=== PATIENT | female | born 1970 | race Caucasian/White ===

== ENCOUNTER → 2019-03-22 | Outpatient (CLI) | payer MEDICARE, MEDICAID | LOC: LAB.O 12:01 | PROVIDERS: ATTEND Internal Medicine Hematology & Oncology | DX: C90.02 Multiple myeloma in relapse (principal) ==

== ENCOUNTER → 2019-04-10 | Outpatient (CLI) | payer MEDICARE, MEDICAID ==
--- NOTE | 2019-04-10 16:03 | RAD ---
EXAM DESCRIPTION: Metastatic Series CLINICAL HISTORY: 48 years Female, MULTIPLE MYELOMA COMPARISON: None. FINDINGS: A static survey demonstrates a few tiny less than 5 mm lucencies in the bony calvarium is, at least mildly suspicious for early mild changes of myeloma. Reversal of normal cervical lordosis is noted. Very little degenerative change is evident. No specific abnormality of the shoulder girdle or destructive process involving the chest wall is evident. I will degenerative changes and minimal dextroscoliosis of the dorsal spine noted. Abdominal aortic calcification without aneurysm with a normal appearance of the lumbar spine is noted. Two views of the upper extremity on each side demonstrate no evidence of myelomatous lucencies. Bony pelvic ring appears intact. Right and left hip and each femur appears intact no destructive changes of the right or left lower extremity seen. IMPRESSION: 1. Several small less than 5 mm lucencies involving the bony calvarium, suspicious for very mild early changes of myeloma. 2. Remainder of the bone survey demonstrates no lytic or destructive process to suggest significant changes of myeloma elsewhere. Electronically signed by: Bam Liu MD 04/10/2019 4:01 PM CDT
== END ==
LOC: RAD 13:24
PROVIDERS: ATTEND Internal Medicine Hematology & Oncology
DX: C90.00 Multiple myeloma not having achieved remission (principal)

== ENCOUNTER → 2019-07-26 | Outpatient (CLI) | payer MEDICARE, MEDICAID ==
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
== END ==
LOC: RAD 08:36
PROVIDERS: ATTEND Internal Medicine Nephrology
DX: J44.9 Chronic obstructive pulmonary disease, unspecified (principal)

== ENCOUNTER → 2019-11-16 | Outpatient (CLI) | payer MEDICARE, MEDICAID ==
--- NOTE | 2019-11-16 11:58 | MRI ---
Study: MRI of the Cervical Spine. Indication: BACK PAIN AND MULTIPLE MYELOMA Technique: Multiplanar, multi sequence MRI of the cervical spine was obtained without intravenous contrast. Comparison: None. Findings: Vertebral body height maintained. No marrow infiltrating lesion. Spinal cord normal in caliber and signal. Straightening cervical spine. C2-C3: Unremarkable C3-C4: Minimal disc space height loss and disc desiccation. No stenosis. C4-C5: Minimal disc space height loss and disc desiccation. 1 mm disc bulge. No stenosis. C5-C6: Mild to moderate disc space height loss and disc desiccation. 3 mm left eccentric disc bulge contacting the ventral spinal cord with mild to moderate spinal canal narrowing, mid sagittal thecal sac diameter 8 mm. Moderate bilateral uncovertebral hypertrophy. Moderate to severe left and moderate right neural foraminal narrowing. C6-C7: Minimal disc space height loss and disc desiccation. 1 mm disc bulge. No stenosis C7-T1: Minimal disc space height loss and disc desiccation. No stenosis Impression: Multilevel cervical disc disease, most pronounced C5-C6 where there is mild spinal canal narrowing as well as moderate to severe left and moderate right neural foraminal narrowing. Additional findings as above. Electronically signed by: Satinder Wright MD 11/16/2019 11:56 AM [facility]
== END ==
LOC: MRI 09:06
PROVIDERS: ATTEND Internal Medicine Hematology & Oncology
DX: M50.322 Other cervical disc degeneration at C5-C6 level (principal); M48.02 Spinal stenosis, cervical region; C90.02 Multiple myeloma in relapse

== ENCOUNTER → 2019-11-19 | Outpatient (CLI) | payer MEDICARE, MEDICAID ==
--- NOTE | 2019-11-19 11:54 | MRI ---
Study: MRI of the Thoracic Spine. Indication: BACK AND MULTIPLE MYELOMA Technique: Multiplanar, multi sequence MRI of the thoracic spine was obtained without intravenous contrast. Comparison: None. Findings: No acute thoracic fracture identified. T1 hyperintense hemangiomas noted within the T7 and T9 vertebral bodies also demonstrate elevated STIR signal. Mild to moderate loss disc space height and hydration throughout the thoracic spine and most pronounced at the T6-T7 through T9-T10 levels where there are millimetric disc protrusions at these levels indenting the ventral thecal sac. No high-grade spinal canal narrowing or neural foraminal narrowing at any thoracic disc space level. Impression: No acute thoracic fracture. Scattered T1 hyperintense meningiomas throughout the thoracic spine. Mild thoracic disc disease without spinal canal narrowing or neural foraminal narrowing at any thoracic disc space level. Electronically signed by: Satinder Wright MD 11/19/2019 11:52 AM [employer]
== END ==
LOC: MRI 09:00
PROVIDERS: ATTEND Internal Medicine Hematology & Oncology
DX: C90.02 Multiple myeloma in relapse (principal); D32.1 Benign neoplasm of spinal meninges; M51.34 Other intervertebral disc degeneration, thoracic region

== ENCOUNTER → 2019-11-20 | Outpatient (CLI) | payer MEDICARE, MEDICAID ==
--- NOTE | 2019-11-21 10:26 | MRI ---
EXAM DESCRIPTION: Lumbar Spine w/o Contrast : [facility]. CLINICAL HISTORY: BACK PAIN AND MULTIPLE MYELOMA COMPARISON: MRI scan thoracic spine November 19. TECHNIQUE: Multiplanar, multiple standard sequences, non contrast MRI, lumbar spine. FINDINGS: L5-S1: The disc is well visualized on axial T2 series 501, image 3. Desiccation of the disc posterior broad-based bulge impressing on the thecal sac and abutting the descending bilateral S1 nerves. Bilateral shortened pedicles. Degenerative hypertrophy of the bilateral facet joints and posterior flavum ligaments (posterior elements), more left than right. AP canal diameter 8.5 mm. Moderate left foraminal narrowing and mild to moderate right foraminal narrowing. L4-L5: Disc desiccation with large inferior L4 endplate Schmorl's node to the left of midline with minimal marrow edema anterior to the node. Minimal disc space loss. Large posterior midline disc herniation 7 mm at the apex and transverse measurement 14 mm. Impressing on the thecal sac and the bilateral subarticular recesses encroaching on the bilateral L5 nerve roots. Bilateral shortened pedicles. Bilateral flavum ligament degenerative hypertrophy. AP canal diameter 6 mm. Moderate to severe narrowing of the right foramen and borderline left foraminal stenosis. L3-L4: Normal signal in the disc with disc space preserved. No posterior disc bulging. Mild degenerative hypertrophy of the posterior elements. Shortening of the bilateral pedicles. AP canal diameter 13 mm. Mild narrowing of the bilateral foramina. L2-L3: Normal signal in the disc and disc space preserved with no posterior bulging. Minimal degenerative hypertrophy of the posterior elements. Bilaterally shortened pedicles. AP canal diameter 12 mm. Bilateral foramina are patent. L1-L2: Normal signal in the disc and disc space preserved. Bilaterally shortened pedicles. Minimal degenerative hypertrophy of the posterior elements. AP canal diameter 12 mm. Bilateral foramina are patent. T12-L1: Normal signal in the disc with disc space preserved. Degenerative hypertrophy of the posterior elements. Impressing on the lateral thecal sac. Bilaterally shortened pedicles. AP canal diameter 14 mm. Bilateral foramina are patent. Conus terminates at this level. Circumscribed hyperintense T1 and T2 hemangioma in the posterior L1 vertebral body and the T11 vertebral body. These objects also show minimal hyperintensity with FLAIR imaging.. No scoliosis or significant spondylolisthesis. Paravertebral soft tissues 3.1 x 1.5 cm mass in the superior pole of the left kidney abutting the posterior limb of the left adrenal gland and the medial spleen. Paraspinal muscle atrophy. Distal cord normal signal and caliber. Heterogeneous marrow signal in the remaining vertebral bodies and the posterior elements. Vertebral bodies are not compressed at any level. IMPRESSION: 1. Multiple levels of degenerative hypertrophy of the posterior flavum ligaments and facet joints (posterior elements). Multiple levels of bilaterally shortened pedicles contributing to canal narrowing or stenosis. 2. Posterior disc osteophyte bulge L5-S1 impressing on the thecal sac and abutting the descending bilateral S1 nerves. Mild to moderate canal stenosis. Moderate left foraminal narrowing. 3. Large posterior midline herniation of the L4-L5 disc with minimal extrusion impressing on the bilateral subarticular recesses and encroaching on the bilateral L5 nerve roots. Severe central canal stenosis. Borderline left foraminal stenosis and moderate to severe narrowing of the right foramen. Correlate for bilateral L4 radiculopathy. 4. Inhomogeneous marrow signal with Schmorl's node inferior L4 endplate but no definitive myelomatous lesion. 5. Mass in the upper pole of the left kidney 3 cm diameter. Appears solid. Recommend follow-up CT scan of the abdomen and kidneys without and with IV contrast and with oral contrast, if this is a new imaging finding. Electronically signed by: Geovanni Woods MD 11/21/2019 10:24 AM [facility]
== END ==
LOC: MRI 09:00
PROVIDERS: ATTEND Internal Medicine Hematology & Oncology
DX: C90.02 Multiple myeloma in relapse (principal); M51.26 Other intervertebral disc displacement, lumbar region; M51.86 Other intervertebral disc disorders, lumbar region; M51.46 Schmorl's nodes, lumbar region; M48.061 Spinal stenosis, lumbar region without neurogenic claudication; M48.07 Spinal stenosis, lumbosacral region; M25.78 Osteophyte, vertebrae; M24.28 Disorder of ligament, vertebrae; N28.9 Disorder of kidney and ureter, unspecified

== ENCOUNTER 2020-04-10 01:13 | Emergency (ER) | payer MEDICARE ==
--- NOTE | 2020-04-10 01:26 | ED.PDOC ---
History of Present Illness - General Chief Complaint: Syncope/Near Syncope Stated Complaint: syncopal episode, altered mental status Time Seen by Provider: 04/10/20 01:18 Source: patient, family, EMS Exam Limitations: no limitations - History of Present Illness Initial Comments: The patient is a 49F with past medical history significant for multiple myeloma on chemotherapy, ESRD on daily PD, and diabetes who presents via EMS for syncope vs. seizure. The patient is amnestic for the event. EMS reports they were initially called to the scene for seizure, however, there was no actual seizure- like activity observed. Family members on scene state that she had risen from the couch to walk into the other room when they heard her collapse and found her unresponsive. No tongue biting, no bowel or bladder incontinence. The patient states that she feels "fine" and does not have any complaints at this time. She denies chest pain, palpitations, abdominal pain, nausea/vomiting, shortness of breath or any other symptoms at this time. Allergies/Adverse Reactions: Allergies Diphenhydramine [From Benadryl] Adverse Reaction (Verified 08/02/19 10:07) cauding to have evere restless leg syndome Review of Systems - Review of Systems Constitutional: Denies: chills, fever EENTM: States: no symptoms reported Respiratory: Denies: cough, short of breath Cardiology: States: syncope. Denies: chest pain, palpitations Gastrointestinal/Abdominal: Denies: abdominal pain, diarrhea, nausea, vomiting Musculoskeletal: Denies: back pain, muscle stiffness, neck pain Skin: States: no symptoms reported Neurological: States: no symptoms reported Endocrine: States: no symptoms reported Hematologic/Lymphatic: States: no symptoms reported All other Systems: Reviewed and Negative Family Medical History - Family History Mother Family History: Unknown Physical Exam - Physical Exam General Appearance: Alert, Anxious, No apparent distress Ears, Nose, Throat: hearing grossly normal Neck: non-tender, full range of motion Respiratory: normal breath sounds, no respiratory distress, no accessory muscle use Cardiovascular/Chest: normal peripheral pulses, regular rate, rhythm, no edema, no gallop, no JVD, no murmur Gastrointestinal/Abdominal: non tender, soft Rectal Exam: deferred Extremity: normal range of motion, non-tender, normal inspection, no pedal edema Neurologic: no motor/sensory deficits, alert, other - flat affect; moderately confused Skin Exam: normal color Progress - Progress Progress: 04/10/20 02:49 Patient reassessed, she is still not quite to baseline per family and remains somewhat confused. CT imaging shows right frontal lobe lesion, infection vs. inflammatory vs. ischemic. Will need admit for MRI and further characterization of the lesion. Will transfer to [facility] for higher level of care. 04/10/20 03:18 While in the ED patient was observed to have a generalized tonic-clonic seizure lasting around one minute. She was given ativan, keppra, and decadron. Discussed with Dr. Solano from [facility] who accepts for transfer. - Results/Orders Results/Orders: 04/10/20 01:19 URINE DRUG SCREEN, 7 ASSAY Stat 04/10/20 01:26 EKG Assessment ONCE 04/10/20 01:30 EKG STAT 04/10/20 01:59 Hold Metformin x 48Hrs [id number] Laboratory Results - last 24 hr 04/10/20 04/10/20 04/10/20 01:19 01:25 01:25 WBC RBC Hgb Hct MCV MCH MCHC RDW Plt Count MPV Absolute Neuts (auto) Absolute Lymphs (auto) Absolute Monos (auto) Absolute Eos (auto) Absolute Basos (auto) Neutrophils % Lymphocytes % Monocytes % Eosinophils % Basophils % D-Dimer, Quantitative Sodium 133 L Potassium 3.9 Chloride 102 Carbon Dioxide 17 L Anion Gap 17.9 BUN 62 H Creatinine 5.49 H BUN/Creatinine Ratio 11.3 Random Glucose 290 H Serum Osmolality 294.6 Lactic Acid Calcium 8.5 Total Bilirubin 0.5 AST 20 ALT 81 H Alkaline Phosphatase 213 H Troponin I 0.02 Serum Total Protein 6.9 Albumin 3.5 Globulin 3.4 Albumin/Globulin Ratio 1.0 L Ethyl Alcohol < 5.40 04/10/20 04/10/20 04/10/20 01:25 01:32 01:45 WBC 7.9 RBC 3.87 L Hgb 12.8 Hct 38.7 MCV 100.2 H MCH 33.2 H MCHC 33.2 RDW 16.0 H Plt Count 184 MPV 8.2 Absolute Neuts (auto) 4.70 Absolute Lymphs (auto) 2.40 Absolute Monos (auto) 0.40 Absolute Eos (auto) 0.30 Absolute Basos (auto) 0.10 Neutrophils % 59.5 Lymphocytes % 30.2 Monocytes % 5.7 Eosinophils % 3.9 Basophils % 0.7 D-Dimer, Quantitative < 131 L Sodium Potassium Chloride Carbon Dioxide Anion Gap BUN Creatinine BUN/Creatinine Ratio Random Glucose Serum Osmolality Lactic Acid 2.3 H Calcium Total Bilirubin AST ALT Alkaline Phosphatase Troponin I Serum Total Protein Albumin Globulin Albumin/Globulin Ratio Ethyl Alcohol - EKG/XRAY/CT Comments: 0127 sinus tachycardia @ 109, nl axis, nl intervals, no stemi CT: 2.8cm hypodense lesion in right frontal lobe Departure - Departure Clinical Impression: Seizure, End stage renal disease, Right frontal lobe lesion Time of Disposition: 03:20 Disposition: Transfer to Hospital Condition: Fair Departure Forms: ED Discharge - Pt. Copy, Patient Portal Self Enrollment Referrals: Bam Childs MD [Primary Care Provider] - 1-2 Weeks
--- NOTE | 2020-04-10 01:54 | CT ---
CLINICAL HISTORY: syncope vs. seizure, altered mental status COMPARISON: None. TECHNIQUE: CT HEAD WITHOUT IV CONTRAST on 04/10/2020 1:18 AM CDT This exam was performed according to our departmental dose-optimization program, which includes automated exposure control, adjustment of the mA and/or kV according to patient size and/or use of iterative reconstruction technique. FINDINGS: There is a vague area of probable vasogenic edema within the right frontal lobe. This overall measures 3.5 cm. Figueredo-white differentiation is preserved. There is no hydrocephalus. There is no significant volume loss for age. The calvarium is intact. Orbits and globes are unremarkable. The paranasal sinuses are clear. Mastoid air cells are clear. IMPRESSION: No acute hemorrhage. Vague area of edema within the right frontal lobe. Recommend contrast enhanced study to exclude underlying mass. Electronically signed by: Anthony Puentes MD 04/10/2020 1:53 AM CDT
--- NOTE | 2020-04-10 02:45 | CT ---
EXAM DESCRIPTION: CT of the head with contrast iodinated contrast. CLINICAL HISTORY: possible right frontal lobe vasogenic edema COMPARISON: 04/10/2020 TECHNIQUE: Axial CT of the head obtained from the skull apex to the skull base following the IV administration of. FINDINGS: Subcortical hypodensity in the right frontal lobe is again identified. This region measures 2.8 x 2.7 x 3.3 cm. Minimal adjacent gyral enhancement. No central enhancement no enhancement. No significant mass effect or midline shift. Ventricular system is not enlarged. No definite acute hemorrhage however evaluation is suboptimal due to intravenous contrast administration. No large vessel vascular occlusion confirmed on this study. The visualized paranasal sinuses and the mastoids are relatively well aerated. No skull fracture identified. Visualized orbits and globes are unremarkable. IMPRESSION: 1. Postcontrast imaging demonstrates minimal adjacent gyral enhancement of the previously visualized subcortical region of hypodensity/edema in the right frontal lobe measuring 2.8 cm in greatest dimension. Differential considerations include infectious/inflammatory process including nonspecific encephalitis, hypovascular neoplasm, and subacute ischemic change. This region produces no significant mass effect. Correlation with contrast-enhanced MRI of the brain recommended for more complete characterization. This exam was performed according to our departmental dose-optimization program, which includes automated exposure control, adjustment of the mA and/or kV according to patient size and/or use of iterative reconstruction technique. Electronically signed by: Brian Andrade 04/10/2020 2:44 AM CDT
[2020-04-10] MEDS ORDERED: DEXAMETHASONE INJ 10 MG/ML VIAL IV ONE (02:51)
[2020-04-10] MEDS ORDERED: levETIRAcetam INJ 1,000 MG in SODIUM CHLORIDE 0.9% 100ML 100 ML IVPB ONE (02:51)
[2020-04-10 05:03] VITALS: BP 154/89; TEMP 98.7; O2SAT 99
== END 2020-04-10 04:05 | disposition short-term general hospital (02) ==
LOC: ER 01:13
DX: R56.9 Unspecified convulsions (principal); G93.9 Disorder of brain, unspecified; N18.6 End stage renal disease; C90.00 Multiple myeloma not having achieved remission; R00.0 Tachycardia, unspecified; Z99.2 Dependence on renal dialysis; R55 Syncope and collapse
CPT/HCPCS: 70450; 70460; 80053; 80320; 82948; 83605; 84484; 85025; 85379; 87040; 93005; J1100; J2060; J7050

== ENCOUNTER → 2020-04-29 | Outpatient (CLI) | payer MEDICARE ==
--- NOTE | 2020-04-30 10:43 | MRI ---
EXAM DESCRIPTION: Lumbar Spine w/o Contrast : [facility]. CLINICAL HISTORY: PAIN IN RIGHT HIP COMPARISON: LUMBAR TECHNIQUE: Multiplanar, multiple standard sequences, non contrast MRI, lumbar spine. FINDINGS: L5-S1: The disc is well visualized on axial T2 series 501, image 3. Disc desiccation with posterior midline disc protrusion 5 mm abutting the exiting left S1 nerve above the subarticular recess. Minimal superior migration of disc tissue into the left of midline but not encroaching on the left L5 nerve. Minimal hypertrophy of the posterior flavum ligaments and bilateral facet joints (canal elements) AP canal diameter 8 mm. Moderate to severe bilateral foraminal narrowing stable since the prior study. Minimal endplate reactive changes central inferior L5 endplate with Schmorl's node. L4-L5: Disc desiccation and disc space loss anterior bulging. Large Schmorl's node inferior L4 endplate with endplate reactive changes, midline and left of midline stable since the prior study. Posterior disc space loss. Posterior midline 7- 8 mm protrusion and 15 mm transverse. Grade 1 retrolisthesis 2 mm. Mild hypertrophic changes in the canal elements. AP canal diameter 5.5 mm. Bilateral subarticular recess narrowing or stenosis. Moderate to severe bilateral foraminal narrowing more on the right. L3-L4: Normal signal in the disc with disc space preserved. Hypertrophic changes of the canal elements. AP canal diameter 12 mm. Bilateral mild foraminal narrowing. L2-L3: Disc space preserved with normal signal in the disc. Minimal hypertrophic changes of the canal elements. AP canal diameter 13 mm. Bilateral trace foraminal narrowing. L1-L2: Normal signal in the disc with mild hypertrophic changes in the canal elements. AP canal diameter 13 mm. Bilateral foramina are patent. L5-S1: Normal signal in the disc with disc space preserved. Minimal hypertrophic changes of the canal elements. Mild canal narrowing. Conus terminates at this level. Bilateral foramina are patent. Stable hemangioma L1 vertebral body. No scoliosis Paravertebral soft tissues negative. Distal cord normal signal and caliber. Marrow inhomogeneity is and hemangiomas stable since the prior study in the colon otherwise normal marrow signal in the remaining vertebral bodies and the posterior elements. Vertebral bodies are not compressed at any level. IMPRESSION: 1. Multiple levels of degenerative hypertrophy of the posterior flavum ligaments and facet joints. No interval change. Marrow inhomogeneities at multiple levels are stable. 2. Protrusion with small inferior extrusion of the L5-S1 disc with the disc abutting the descending left S1 nerve above the subarticular recess. No change from the prior study. Superior extruded fragment, new since the prior study, but not encroaching on the left L5 nerve. 3. Large L4-L5 disc protrusion with severe central canal stenosis and bilateral subarticular recess narrowing or stenosis with encroachment on the bilateral descending L5 nerves. Disc is also abutting the bilateral L4 nerves in the foramen. No change from the prior study. Electronically signed by: Geovanni Woods MD 04/30/2020 10:41 AM CDT
== END ==
LOC: MRI 10:03
PROVIDERS: ATTEND Family Medicine
DX: M46.96 Unspecified inflammatory spondylopathy, lumbar region (principal); M51.26 Other intervertebral disc displacement, lumbar region; M51.27 Other intervertebral disc displacement, lumbosacral region; M24.28 Disorder of ligament, vertebrae; M48.062 Spinal stenosis, lumbar region with neurogenic claudication